=== PATIENT | female | born 1985 | race Caucasian/White ===

== ENCOUNTER 2017-02-22 12:43 | Inpatient (IN) | payer BC ==
[~2017-02-22] VITALS: Ht 160 cm; Wt 71.0 kg
[2017-02-22 13:37] LABS: Albumin 4.2 g/dL (3.4-5.0); Anion Gap 8 (5-15); Blood Urea Nitrogen 8 mg/dL (7-18); Calcium 9.2 mg/dL (8.5-10.1); Carbon Dioxide 22 mmol/L (21-32); Chloride 109 mmol/L (98-107); Glucose 109 mg/dL (74-106); Potassium 3.8 mmol/L (3.5-5.1); Sodium 139 mmol/L (136-145)
[2017-02-22 13:40] LABS: Aspartate Aminotransferase 9 U/L (15-37); BUN/Creatinine Ratio 11.4; Bilirubin, Total 0.7 mg/dL (0.2-1.0); GFR African American 127 mL/min; GFR Non-African American 105 mL/min
[2017-02-22 13:41] LABS: Basophils # (auto) 0 uL; Basophils % (auto) 0.2 % (0.0-2.0); CONDITION Y; Eosinophils # (auto) 0 uL; Eosinophils % (auto) 0.3 % (0.0-7.0); Hemoglobin 14.3 g/dL (12.2-16.2); Lymphocytes # (auto) 1.7 uL; Lymphocytes % (auto) 16.8 % (10.0-50.0); Mean Corpuscular Hemoglobin 31.1 pg (28.0-32.0); Mean Corpuscular Hgb Conc. 34.2 g/dL (32.0-36.0); Mean Corpuscular Volume 90.9 fL (80.0-100.0); Mean Platelet Volume 8.4 fL (7.4-10.4); Monocytes # (auto) 0.4 uL; Monocytes % (auto) 4.2 % (0.0-12.0); Neutrophils # (auto) 7.8 uL; Neutrophils % (auto) 78.5 % (37.0-80.0); Platelet Count (auto) 385 10^3/uL (140-450); Red Cell Distribution Width 12.6 % (11.6-16.0)
[2017-02-22 13:43] LABS: Alkaline Phosphatase 66 U/L (45-117)
[2017-02-22] MEDS ORDERED: SODIUM CHLORIDE 0.9% 1,000 ML IV ONE (15:00)
[2017-02-22] MEDS ORDERED: LORazepam 2MG/ML-1ML VIAL IV ONE (15:30)
[2017-02-22] MEDS ORDERED: ASPirin 81 mg TAB PO ONE (15:30)
[2017-02-22] MEDS ORDERED: ONDANSETRON HCL 4 MG/2 ML VIAL IV PRN (15:45)
[2017-02-22] MEDS ORDERED: MORPHINE SULF INJ 2 MG/ML SYRINGE 1ML IV PRN ×2 (15:45)
[2017-02-22] MEDS ORDERED: ALUM & MAG HYDROX-SIMETH LIQ(MAALOX) 30 ML PO ONE (15:45)
[2017-02-22] MEDS ORDERED: NITROGLYCERIN 0.4 MG SL TAB SL PRN ×2 (15:45)
[2017-02-22 17:03] LABS: Urine Bilirubin Negative (Negative); Urine Blood Negative /uL (Negative); Urine Color Yellow (Yellow); Urine Glucose Normal (Normal); Urine Ketone Negative (Negative); Urine Mucus FEW (None Seen); Urine Nitrite Negative (Negative); Urine RBC <1 /hpf (0 - 4); Urine Squamous Epithelial Cell FEW /hpf (<5); Urine Urobilinogen Normal (Negative); Urine pH 6.5 (5.0-8.0)
[2017-02-22 17:19] LABS: B-Type Natriuretic Peptide 20.72 pg/mL (0-100)
[2017-02-22 17:20] LABS: Temperature: 23.3 C (20.0-25.0)
[2017-02-22 20:00] VITALS: BP 95/58
[2017-02-22] MEDS: ATORVASTATIN 20 MG TAB PO SCH (21:48)
[2017-02-22] MEDS: SODIUM CHLOR 0.9% PF (SALINE LOCK) 10ML VIAL IV SCH (21:48)
[2017-02-22] MEDS: ZOLPIDEM TARTRATE 5 MG TAB PO PRN (21:48)
[2017-02-22] MEDS: ENALAPRIL MALEATE 2.5 MG TAB PO SCH (21:56)
[2017-02-22] MEDS: CARVEDILOL 3.125 MG TAB PO SCH (21:56)
[2017-02-22 22:00] VITALS: BP 89/54
[2017-02-23] MEDS: SODIUM CHLOR 0.9% PF (SALINE LOCK) 10ML VIAL IV SCH ×3 (04:53→22:13)
[2017-02-23] MEDS: ACETAMINOPHEN 325 MG TAB PO PRN ×3 (04:53→19:37)
[2017-02-23 05:30] VITALS: BP 85/44
[2017-02-23 06:29] LABS: Basophils # (auto) 0 uL; Basophils % (auto) 0.4 % (0.0-2.0); CONDITION Y; Eosinophils # (auto) 0.1 uL; Hematocrit 38.4 % (36.0-46.0); Hemoglobin 13.1 g/dL (12.2-16.2); Lymphocytes # (auto) 1.9 uL; Lymphocytes % (auto) 26.9 % (10.0-50.0); Mean Corpuscular Hemoglobin 31.5 pg (28.0-32.0); Mean Corpuscular Hgb Conc. 34.2 g/dL (32.0-36.0); Mean Corpuscular Volume 92.2 fL (80.0-100.0); Mean Platelet Volume 8.3 fL (7.4-10.4); Monocytes # (auto) 0.5 uL; Monocytes % (auto) 6.7 % (0.0-12.0); Neutrophils # (auto) 4.6 uL; Platelet Count (auto) 305 10^3/uL (140-450); Red Cell Distribution Width 12.6 % (11.6-16.0); White Blood Cell 7.1 10^3/uL (4.4-10.8)
[2017-02-23 06:51] LABS: BUN/Creatinine Ratio 14.3; Calcium 9.2 mg/dL (8.5-10.1); Magnesium 2.5 mg/dL (1.6-2.6); Potassium 4.9 mmol/L (3.5-5.1)
[2017-02-23 06:56] LABS: Albumin 3.7 g/dL (3.4-5.0); Bilirubin, Total 0.6 mg/dL (0.2-1.0); Total Protein 7.2 g/dL (6.4-8.2)
[2017-02-23 07:40] VITALS: BP 105/60
[2017-02-23 08:00] VITALS: BP 105/60
[2017-02-23] MEDS: LORazepam 0.5 MG TAB PO PRN ×2 (09:16→19:37)
[2017-02-23] MEDS: DOCUSATE SOD 100 MG CAP PO SCH ×2 (09:58→09:59)
[2017-02-23] MEDS: ATORVASTATIN 20 MG TAB PO SCH (09:59)
[2017-02-23] MEDS: ENALAPRIL MALEATE 2.5 MG TAB PO SCH (09:59)
[2017-02-23] MEDS ORDERED: ASPirin 81 mg TAB PO SCH (10:00)
[2017-02-23] MEDS: CARVEDILOL 3.125 MG TAB PO SCH (10:00)
[2017-02-23] MEDS ORDERED: CLOPIDOGREL BISULFATE 75 MG TAB PO SCH (10:00)
[2017-02-23 11:55] VITALS: BP 93/58
[2017-02-23 17:20] VITALS: BP 119/74
[2017-02-23 21:52] VITALS: BP 139/65
[2017-02-23] MEDS: ZOLPIDEM TARTRATE 5 MG TAB PO PRN (22:13)
[2017-02-24 05:21] VITALS: BP 101/48
[2017-02-24] MEDS: SODIUM CHLOR 0.9% PF (SALINE LOCK) 10ML VIAL IV SCH (05:32)
[2017-02-24 09:00] VITALS: BP 101/61
[2017-02-24 11:16] VITALS: BP 101/61
== END 2017-02-24 11:50 | disposition home or self-care (01) | DRG 310 ==
LOC: ER 12:43 → TELE 12:44 → TELE-CENTR 20:02
PROVIDERS: ADMIT Internal Medicine; ATTEND Internal Medicine
DX: I49.9 Cardiac arrhythmia, unspecified (principal); F41.9 Anxiety disorder, unspecified; R00.2 Palpitations; R00.0 Tachycardia, unspecified; Z88.8 Allergy status to other drugs, medicaments and biological substances; Z82.49 Family history of ischemic heart disease and other diseases of the circulatory system
CPT/HCPCS: 36415; 71020; 80053; 80061; 80307; 81001; 81025; 83735; 83880; 84443; 84484; 85025; 93005; 93017; 93306; 96361; 96374; 99291